=== PATIENT | female | born 1980 | race Caucasian/White ===

== ENCOUNTER → 2016-03-25 | Outpatient (CLI) | payer OTHER | END | disposition home or self-care (01) | LOC: C.LABSPEC 11:28 | PROVIDERS: ATTEND Obstetrics & Gynecology | DX: O13.3 Gestational [pregnancy-induced] hypertension without significant proteinuria, third trimester (principal); O09.513 Supervision of elderly primigravida, third trimester ==

== ENCOUNTER → 2016-03-26 | Outpatient (CLI) | payer OTHER ==
[2016-03-26 18:36] LABS: PATIENT HEIGHT 162.6 cm
[2016-03-26 18:49] LABS: HEMATOCRIT 39.8 % (37-47); MEAN CORPUSCULAR HEMOGLOBIN 32.1 pg (25-34); MEAN CORPUSCULAR HGB CONC 35.7 g/dl (32-36); MEAN PLATELET VOLUME 10.6 fL (7.4-10.4); PLATELET COUNT 311 K/uL (130-400); RED BLOOD COUNT 4.42 M/uL (4.2-5.4); WHITE BLOOD COUNT 13.53 K/uL (4.8-10.8)
[2016-03-26 19:09] LABS: ALT/SGPT 52 U/L (12-78); AST/SGOT 34 U/L (15-37); CREATININE 0.65 mg/dl (0.60-1.20); URIC ACID 3.8 mg/dl (2.6-7.2)
[2016-03-26 19:12] LABS: ALKALINE PHOSPHATASE 134 U/L (45-117)
[2016-03-26 21:36] LABS: URINE TOTAL PROTEIN 10.3 mg/dl (0-11.9)
[2016-03-26 22:44] LABS: CREATININE 0.65 mg/dl (0.6-1.2)
== END | disposition home or self-care (01) ==
LOC: C.LAB 18:26
PROVIDERS: ATTEND Obstetrics & Gynecology
DX: O09.513 Supervision of elderly primigravida, third trimester (principal); O13.9 Gestational [pregnancy-induced] hypertension without significant proteinuria, unspecified trimester

== ENCOUNTER → 2016-03-31 | Outpatient (CLI) | payer OTHER ==
[2016-03-31 20:17] LABS: HEMATOCRIT 38.3 % (37-47); MEAN CELL VOLUME 90.3 fL (80-100); MEAN CORPUSCULAR HEMOGLOBIN 31.8 pg (25-34); MEAN CORPUSCULAR HGB CONC 35.2 g/dl (32-36); MEAN PLATELET VOLUME 10.6 fL (7.4-10.4); PLATELET COUNT 340 K/uL (130-400); RED BLOOD COUNT 4.24 M/uL (4.2-5.4); WHITE BLOOD COUNT 16.47 K/uL (4.8-10.8)
[2016-03-31 20:38] LABS: ALT/SGPT 38 U/L (12-78); CREATININE 0.66 mg/dl (0.60-1.20)
[2016-03-31 20:41] LABS: ALKALINE PHOSPHATASE 131 U/L (45-117); AST/SGOT 27 U/L (15-37)
[2016-03-31 23:01] LABS: PATIENT HEIGHT 162.6 cm
[2016-03-31 23:23] LABS: CREATININE 0.66 mg/dl (0.6-1.2)
[2016-03-31 23:26] LABS: URINE TOTAL PROTEIN 14.8 mg/dl (0-11.9)
== END | disposition home or self-care (01) ==
LOC: C.LAB 19:30
PROVIDERS: ATTEND Obstetrics & Gynecology
DX: O13.9 Gestational [pregnancy-induced] hypertension without significant proteinuria, unspecified trimester (principal)

== ENCOUNTER 2016-04-05 17:54 | Outpatient (CLI) | payer OTHER | END 2016-04-05 19:27 | disposition home or self-care (01) | LOC: C.LD 17:54 → C.OPB 17:54 | PROVIDERS: ATTEND Obstetrics & Gynecology | DX: O13.3 Gestational [pregnancy-induced] hypertension without significant proteinuria, third trimester (principal); Z3A.37 37 weeks gestation of pregnancy ==

== ENCOUNTER 2016-04-06 08:01 | Inpatient (IN) | payer OTHER ==
[~2016-04-06] VITALS: Ht 162.6 cm; Wt 93.2 kg
[2016-04-06] MEDS ORDERED: LACTATED RINGER'S 1000ML 1,000 ML IV PRN (08:35)
[2016-04-06] MEDS ORDERED: LACTATED RINGER'S 1000ML 500 ML IV PRN (08:35)
[2016-04-06] MEDS ORDERED: OXYTOCIN 30 UNITS/500ML NSS IV PRN ×2 (08:45→19:00)
[2016-04-06] MEDS ORDERED: PATIENT'S ALLERGY INFO NEEDS ENTERED SCH (09:00)
[2016-04-06] MEDS ORDERED: PENICILLIN G POTASSIUM IV 6 MU in DEXTROSE 5% 250ML 250 ML IV ONE (09:00)
[2016-04-06 09:02] LABS: HEMATOCRIT 38.1 % (37-47); MEAN CELL VOLUME 90.7 fL (80-100); MEAN CORPUSCULAR HEMOGLOBIN 31.4 pg (25-34); MEAN CORPUSCULAR HGB CONC 34.6 g/dl (32-36); MEAN PLATELET VOLUME 10.9 fL (7.4-10.4); PLATELET COUNT 274 K/uL (130-400); WHITE BLOOD COUNT 16.89 K/uL (4.8-10.8)
[2016-04-06] MEDS: LACTATED RINGER'S 1000ML 1,000 ML IV SCH ×2 (09:16→15:15)
[2016-04-06 09:26] LABS: ALT/SGPT 36 U/L (12-78); BLOOD UREA NITROGEN 10 mg/dl (7-18); BUN/CREATININE RATIO 17.2 (10-20); CALCIUM 8.4 mg/dl (8.5-10.1); CARBON DIOXIDE 21 mmol/L (21-32); CHLORIDE 107 mmol/L (98-107); GLUCOSE 81 mg/dl (70-99); POTASSIUM 3.7 mmol/L (3.5-5.1); SODIUM 140 mmol/L (136-145)
[2016-04-06 09:29] LABS: ALB/GLOB RATIO 0.7 (0.9-2); ALKALINE PHOSPHATASE 127 U/L (45-117); AST/SGOT 29 U/L (15-37)
[2016-04-06 10:17] VITALS: Ht 162.6 cm; Wt 93.2 kg
[2016-04-06] MEDS: PENICILLIN G POTASSIUM IV 3 MU in DEXTROSE 5% 100ML 100 ML IV PRN ×2 (13:26→17:24)
[2016-04-06] MEDS ORDERED: FENTANYL CITRATE INJ 50 MCG/1 ML 2 ML VIAL ONE (14:33)
[2016-04-06] MEDS ORDERED: EpHEDrine SULFATE INJ 50 MG/ML AMP ONE (14:33)
[2016-04-06] MEDS ORDERED: FENTANYL 2MCG/ML ROPIV 1.25MG/ML 100ML BAG EPI ONE (14:33)
[2016-04-06] MEDS ORDERED: BUPIVACAINE 0.25% 30 ML VIAL ONE (14:33)
[2016-04-06] MEDS ORDERED: ACETAMINOPHEN/CODEINE 300/30MG TAB PO PRN ×2 (19:00)
[2016-04-06] MEDS ORDERED: DIPHTHERIA/TETANUS/PERTUSSIS 0.5 ML SYR/VIAL IM. ONE (19:00)
[2016-04-06] MEDS ORDERED: ACETAMINOPHEN 325 MG TAB PO PRN (19:00)
[2016-04-06] MEDS ORDERED: HYDROCORTISONE ACETATE 25 MG SUPP PR PRN (19:00)
[2016-04-06] MEDS ORDERED: LANOLIN OINT EXT PRN ×2 (19:00)
[2016-04-06] MEDS ORDERED: BENZOCAINE 20% AER SPR 82.5 GM CAN EXT PRN (19:00)
[2016-04-06] MEDS ORDERED: SUPERCREAM 0.870 % 15GM JAR EXT PRN (19:00)
--- NOTE | 2016-04-06 19:27 | Anesthesia Procedure Note ---
Anesthesia Epidural Removal Nt Date & Time Apr 06, 2016 at 19:27 Notes Mental Status: alert / awake / arousable, participated in evaluation Nausea / Vomiting: adequately controlled Pain: adequately controlled Airway Patency, RR, SpO2: stable & adequate BP & HR: stable & adequate Hydration State: stable & adequate Neuraxial Anesthesia: was administered Anesthetic Complications: no major complications apparent, pt satisfied with anesthetic care Epidural: removed without complications, with tip intact
[2016-04-06 21:45] VITALS: BP 134/85; PULSE 94; TEMP 36.7; O2SAT 97
--- NOTE | 2016-04-06 22:33 | DELIVERY SUMMARY ---
DATE OF OPERATION: 04/06/2016 FINDINGS: A viable female infant with Apgars of 8 and 9. Baby delivered over a midline second degree laceration with midline second degree periurethral laceration. Cord gases, cord blood samples obtained. Placenta delivered spontaneously. Laceration was repaired with 4-0 Vicryl. Estimated blood loss was 300 mL. LABOR NOTE: The patient is a 36-year-old 3, para 0 admitted at 37+ weeks' gestational age for induction for gestational hypertension. The patient's hypertension was diagnosed in the third trimester. Per protocol, she was followed for preeclampsia. The patient had less than 300 mg of total protein. Because of the term gestational age, she was admitted for induction. The patient had presented to labor and delivery the previous evening for Wiggins bulb placement, that dislodged at approximately 2300 hours on the 05 of April. Upon admission, the patient's cervix was 3 cm dilated, 90% effaced and minus 2 station, blood pressure was 168/86. Preeclamptic labs were drawn, which were within normal limits. Because of the advanced cervical dilatation, she was started on Pitocin, per induction protocol. The patient progressed to a regular labor pattern. She had spontaneous rupture of membranes with clear fluid. Contraction increased markedly in intensity. At that time, cervix was still 3 cm. Anesthesia was consulted and an epidural was placed. Three hours after placement of the epidural, repeat examination showed the cervix to be fully dilated in a +2 presentation. She began her second stage. She pushed a little over half an hour delivering the viable female infant with description as above. Cord was clamped and cut. Cord gases, cord blood samples obtained. Placenta was delivered spontaneously and sent for pathological evaluation. Inspection of the perineum showed a midline second degree laceration and a midline second degree periurethral laceration. Both of those were repaired with 4-0 Vicryl in routine fashion. Estimated blood loss was 300 mL. Sponge and needle count was correct. I attest to the content of the Intraoperative Record and any orders documented therein. Any exceptio ns are noted below.
[2016-04-06 23:50] VITALS: BP 139/92; PULSE 82; TEMP 36.5; O2SAT 96
[2016-04-06] MEDS: IBUPROFEN 600 MG TAB PO PRN (23:59)
[2016-04-07 04:30] VITALS: BP 127/83; PULSE 90; TEMP 36.5; O2SAT 96
[2016-04-07] MEDS: IBUPROFEN 600 MG TAB PO PRN ×5 (04:40→23:23)
--- NOTE | 2016-04-07 06:51 | Medical Student: [facility] ---
Med Student RIM BUSTER Progress Nt Date of Service Apr 07, 2016. Subjective conversation w/ patient, conversation w/ family, physical exam, chart review Ambulation: ambulating normally Voiding: no voiding problems Passing Gas: Yes Diet Tolerance: Regular Diet Lochia: Moderate Feeding Type: Bottle Feeding Pain: denies pain Notes: Pt is doing well. No pain. Tolerate diet well. Able to ambulate and pass some gas. No problem with urination. Bottle feeding her baby. Plan to stay for another day due to GBS+ Review of Systems Constitutional: No chills, No fever Respiratory: No cough, No shortness of breath, No sputum Cardiac: No chest pain, No edema Abdomen: No nausea, No pain Female : + vaginal discharge (vaginal bleeding) Objective Vital Signs Date Time Temp Pulse Resp B/P Pulse Ox O2 Delivery O2 Flow Rate FiO2 04/07/16 04:30 36.5 90 16 127/83 96 Room Air 04/06/16 23:50 96 Room Air 04/06/16 23:50 36.5 82 20 139/92 96 Room Air 04/06/16 21:45 36.7 94 18 134/85 97 Room Air Physical Exam General Appearance: WELL-APPEARING, WD/WN Respiratory/Chest: lungs clear, normal breath sounds, no respiratory distress Cardiovascular: regular rate, rhythm, no gallop Abdomen: non tender Fundus: Firm, Relation to Umbilicus (2 fingers-breath below the umbilicus) Extremities: normal range of motion, no calf tenderness Laboratory Results Last 24 Hours Test 04/06/16 08:46 04/07/16 04:44 White Blood Count 16.89 K/uL Red Blood Count 4.20 M/uL Hemoglobin 13.2 g/dL Hematocrit 38.1 % Mean Corpuscular Volume 90.7 fL Mean Corpuscular Hemoglobin 31.4 pg Mean Corpuscular Hemoglobin Concent 34.6 g/dl RDW Standard Deviation 43.2 fL RDW Coefficient of Variation 13.1 % Platelet Count 274 K/uL Mean Platelet Volume 10.9 fL Sodium Level 140 mmol/L Potassium Level 3.7 mmol/L Chloride Level 107 mmol/L Carbon Dioxide Level 21 mmol/L Anion Gap 12.0 mmol/L Blood Urea Nitrogen 10 mg/dl Creatinine 0.60 mg/dl Estimated GFR () 135.0 Estimated GFR (Non- 116.4 BUN/Creatinine Ratio 17.2 Random Glucose 81 mg/dl Calcium Level 8.4 mg/dl Total Bilirubin 0.3 mg/dl Aspartate Amino Transf (AST/SGOT) 29 U/L Alanine Aminotransferase (ALT/SGPT) 36 U/L Alkaline Phosphatase 127 U/L Total Protein 6.3 gm/dl Albumin 2.6 gm/dl Globulin 3.7 gm/dl Albumin/Globulin Ratio 0.7 Medications Current Inpatient Medications Medications (Trade) Dose Ordered Sig/Hailey Route Start Time Stop Time Status Last Admin Dose Admin Penicillin G Potassium 3 mu/ Dextrose 106 ml @ 100 mls/hr Q4H PRN IV 04/06/16 08:45 04/08/16 08:44 04/06/16 17:24 100 MLS/HR Lactated Ringer's 1,000 ml @ 125 mls/hr Q8H IV 04/06/16 08:35 04/08/16 08:34 04/06/16 15:15 125 MLS/HR Lactated Ringer's (Lr 1000ml) 1,000 ml @ 999 mls/hr Q1H1M PRN IV 04/06/16 08:35 05/06/16 08:34 Oxytocin 30 units 30 units UD PRN IV 04/06/16 08:45 05/06/16 08:44 04/06/16 09:51 30 UNITS Lactated Ringer's (Lr 1000ml) 500 ml @ 999 mls/hr Q31M PRN IV 04/06/16 08:35 05/06/16 08:34 Oxytocin (Pitocin IV) 30 units UD PRN IV 04/06/16 19:00 05/06/16 18:59 Benzocaine (Dermoplast Aero Spr) 1 appln PRN PRN EXT 04/06/16 19:00 05/06/16 18:59 04/06/16 23:59 1 APPLN Cocaine HCl (Supercream 0.870% Cr) BID PRN EXT 04/06/16 19:00 04/20/16 18:59 Hydrocortisone Acetate (Anusol Hc Supp) 25 mg BID PRN RI 04/06/16 19:00 05/06/16 18:59 Lanolin (Lanolin Oint) PRN PRN EXT 04/06/16 19:00 05/06/16 18:59 Prenat Multivit/ Project Finance Analyst/Iron/Folic Ac ( Vitamin Tab) 1 tab DAILY PO 04/07/16 08:00 05/07/16 07:59 Ibuprofen (Motrin Tab) 600 mg Q4H PRN PO 04/06/16 19:00 05/06/16 18:59 04/07/16 04:40 600 MG Acetaminophen (Tylenol Tab) 650 mg Q6H PRN PO 04/06/16 19:00 05/06/16 18:59 Acetaminophen/ Codeine Phosphate (Tylenol w/ Codeine #3 Tab) 1 tab Q4H PRN PO 04/06/16 19:00 05/06/16 18:59 Acetaminophen/ Codeine Phosphate (Tylenol w/ Codeine #3 Tab) 2 tab Q4H PRN PO 04/06/16 19:00 05/06/16 18:59 Bisacodyl (Dulcolax Tab) 5 mg TODAY@2000 ONCE PO 04/07/16 20:00 04/07/16 20:01 Docusate Sodium (coLACE CAP) 100 mg BID PO 04/06/16 20:00 05/06/16 19:59 Ferrous Sulfate (Feosol Tab) 325 mg DAILY PO 04/07/16 08:00 05/07/16 07:59 Assessment and Plan Post- Day Number: 1 Continue Routine Care: BP 127/83 Ambulation well Tolerate diet well GBS+ Plan to discharge tomorrow
--- NOTE | 2016-04-07 07:11 | Progress Note ---
Subjective Apr 07, 2016. Subjective conversation w/ patient, physical exam Ambulation: ambulating normally Voiding: no voiding problems Passing Gas: Yes Diet Tolerance: Regular Diet Lochia: Moderate Feeding Type: Bottle Feeding Pain: Cramping pain Review of Systems Constitutional: No chills, No fever Respiratory: No cough, No shortness of breath Cardiac: No chest pain Breast: No breast pain Abdomen: No nausea, No pain, No vomiting Female : No dysuria Objective Vital Signs Date Time Temp Pulse Resp B/P Pulse Ox O2 Delivery O2 Flow Rate FiO2 04/07/16 04:30 36.5 90 16 127/83 96 Room Air 04/06/16 23:50 96 Room Air 04/06/16 23:50 36.5 82 20 139/92 96 Room Air 04/06/16 21:45 36.7 94 18 134/85 97 Room Air Physical Exam General Appearance: WELL-APPEARING, WD/WN, NO APPARENT DISTRESS Respiratory/Chest: lungs clear, normal breath sounds Cardiovascular: regular rate, rhythm, no gallop, no murmur Abdomen: non tender, soft Fundus: Firm, Relation to Umbilicus (1cm below) Extremities: no calf tenderness Laboratory Results Last 24 Hours Test 04/06/16 08:46 04/07/16 04:44 White Blood Count 16.89 K/uL Red Blood Count 4.20 M/uL Hemoglobin 13.2 g/dL Hematocrit 38.1 % Mean Corpuscular Volume 90.7 fL Mean Corpuscular Hemoglobin 31.4 pg Mean Corpuscular Hemoglobin Concent 34.6 g/dl RDW Standard Deviation 43.2 fL RDW Coefficient of Variation 13.1 % Platelet Count 274 K/uL Mean Platelet Volume 10.9 fL Sodium Level 140 mmol/L Potassium Level 3.7 mmol/L Chloride Level 107 mmol/L Carbon Dioxide Level 21 mmol/L Anion Gap 12.0 mmol/L Blood Urea Nitrogen 10 mg/dl Creatinine 0.60 mg/dl Estimated GFR () 135.0 Estimated GFR (Non- 116.4 BUN/Creatinine Ratio 17.2 Random Glucose 81 mg/dl Calcium Level 8.4 mg/dl Total Bilirubin 0.3 mg/dl Aspartate Amino Transf (AST/SGOT) 29 U/L Alanine Aminotransferase (ALT/SGPT) 36 U/L Alkaline Phosphatase 127 U/L Total Protein 6.3 gm/dl Albumin 2.6 gm/dl Globulin 3.7 gm/dl Albumin/Globulin Ratio 0.7 Medications Current Inpatient Medications Medications (Trade) Dose Ordered Sig/Hailey Route Start Time Stop Time Status Last Admin Dose Admin Penicillin G Potassium 3 mu/ Dextrose 106 ml @ 100 mls/hr Q4H PRN IV 04/06/16 08:45 04/08/16 08:44 04/06/16 17:24 100 MLS/HR Lactated Ringer's 1,000 ml @ 125 mls/hr Q8H IV 04/06/16 08:35 04/08/16 08:34 04/06/16 15:15 125 MLS/HR Lactated Ringer's (Lr 1000ml) 1,000 ml @ 999 mls/hr Q1H1M PRN IV 04/06/16 08:35 05/06/16 08:34 Oxytocin 30 units 30 units UD PRN IV 04/06/16 08:45 05/06/16 08:44 04/06/16 09:51 30 UNITS Lactated Ringer's (Lr 1000ml) 500 ml @ 999 mls/hr Q31M PRN IV 04/06/16 08:35 05/06/16 08:34 Oxytocin (Pitocin IV) 30 units UD PRN IV 04/06/16 19:00 05/06/16 18:59 Benzocaine (Dermoplast Aero Spr) 1 appln PRN PRN EXT 04/06/16 19:00 05/06/16 18:59 04/06/16 23:59 1 APPLN Cocaine HCl (Supercream 0.870% Cr) BID PRN EXT 04/06/16 19:00 04/20/16 18:59 Hydrocortisone Acetate (Anusol Hc Supp) 25 mg BID PRN [place] 04/06/16 19:00 05/06/16 18:59 Lanolin (Lanolin Oint) PRN PRN EXT 04/06/16 19:00 05/06/16 18:59 Prenat Multivit/ Supervisor Inspection Department/Iron/Folic Ac ( Vitamin Tab) 1 tab DAILY PO 04/07/16 08:00 05/07/16 07:59 Ibuprofen (Motrin Tab) 600 mg Q4H PRN PO 04/06/16 19:00 05/06/16 18:59 04/07/16 04:40 600 MG Acetaminophen (Tylenol Tab) 650 mg Q6H PRN PO 04/06/16 19:00 05/06/16 18:59 Acetaminophen/ Codeine Phosphate (Tylenol w/ Codeine #3 Tab) 1 tab Q4H PRN PO 04/06/16 19:00 05/06/16 18:59 Acetaminophen/ Codeine Phosphate (Tylenol w/ Codeine #3 Tab) 2 tab Q4H PRN PO 04/06/16 19:00 05/06/16 18:59 Bisacodyl (Dulcolax Tab) 5 mg TODAY@2000 ONCE PO 04/07/16 20:00 04/07/16 20:01 Docusate Sodium (coLACE CAP) 100 mg BID PO 04/06/16 20:00 05/06/16 19:59 Ferrous Sulfate (Feosol Tab) 325 mg DAILY PO 04/07/16 08:00 05/07/16 07:59 Assessment and Plan Post- Day#: 1 Continue Routine Care: - Vital Signs reviewed and WNL (temp max 36.5) - Blood Type: O-, GBS+ , Rubella Immune - Patient doing well clinically - Encourage Ambulation today - No pain reported this morning - Tolerating PO Diet Well
[2016-04-07 07:23] LABS: HEMATOCRIT 36.3 % (37-47)
[2016-04-07 08:00] VITALS: BP 140/80; PULSE 76; TEMP 36.7; O2SAT 98
[2016-04-07] MEDS: DOCUSATE SODIUM 100 MG CAP PO SCH ×2 (08:59→20:23)
[2016-04-07] MEDS: PRENATAL VITAMIN TAB PO SCH (08:59)
[2016-04-07] MEDS: FERROUS SULFATE 325 MG TAB PO SCH (08:59)
[2016-04-07 12:30] VITALS: BP 138/82; PULSE 64; TEMP 36.8; O2SAT 98
[2016-04-07 16:00] VITALS: BP 128/82; PULSE 83; TEMP 36.8
[2016-04-07] MEDS ORDERED: BISACODYL 5 MG TABEC PO ONE (20:00)
[2016-04-07 23:25] VITALS: BP 127/83; PULSE 67; TEMP 36.8
[2016-04-08] MEDS: IBUPROFEN 600 MG TAB PO PRN ×2 (06:07→10:09)
--- NOTE | 2016-04-08 07:22 | Progress Note ---
Subjective Apr 08, 2016. Subjective conversation w/ patient, physical exam Ambulation: ambulating normally Voiding: no voiding problems Passing Gas: Yes Diet Tolerance: Regular Diet Lochia: Small Feeding Type: Bottle Feeding Pain: No pain reported this morning Review of Systems Constitutional: No chills, No fever Respiratory: No cough, No shortness of breath Cardiac: No chest pain Breast: No breast pain Abdomen: No nausea, No pain, No vomiting Female : No dysuria Objective Vital Signs Date Time Temp Pulse Resp B/P Pulse Ox O2 Delivery O2 Flow Rate FiO2 04/07/16 23:25 36.8 67 19 127/83 Room Air 04/07/16 23:25 Room Air 04/07/16 16:00 36.8 83 18 128/82 Room Air 04/07/16 16:00 Room Air 04/07/16 12:30 36.8 64 16 138/82 98 Room Air 04/07/16 12:30 98 Room Air 04/07/16 08:00 36.7 76 16 140/80 98 Room Air 04/07/16 08:00 98 Room Air Physical Exam General Appearance: WELL-APPEARING, WD/WN, NO APPARENT DISTRESS Respiratory/Chest: lungs clear, normal breath sounds Cardiovascular: regular rate, rhythm, no gallop, no murmur Abdomen: non tender, soft Fundus: Firm, Relation to Umbilicus (1cm below umbilicus) Extremities: no calf tenderness Medications Current Inpatient Medications Medications (Trade) Dose Ordered Sig/Hailey Route Start Time Stop Time Status Last Admin Dose Admin Penicillin G Potassium 3 mu/ Dextrose 106 ml @ 100 mls/hr Q4H PRN IV 04/06/16 08:45 04/08/16 08:44 04/06/16 17:24 100 MLS/HR Lactated Ringer's 1,000 ml @ 125 mls/hr Q8H IV 04/06/16 08:35 04/08/16 08:34 04/06/16 15:15 125 MLS/HR Lactated Ringer's (Lr 1000ml) 1,000 ml @ 999 mls/hr Q1H1M PRN IV 04/06/16 08:35 05/06/16 08:34 Oxytocin 30 units 30 units UD PRN IV 04/06/16 08:45 05/06/16 08:44 04/06/16 09:51 30 UNITS Lactated Ringer's (Lr 1000ml) 500 ml @ 999 mls/hr Q31M PRN IV 04/06/16 08:35 05/06/16 08:34 Oxytocin (Pitocin IV) 30 units UD PRN IV 04/06/16 19:00 05/06/16 18:59 Benzocaine (Dermoplast Aero Spr) 1 appln PRN PRN EXT 04/06/16 19:00 05/06/16 18:59 04/06/16 23:59 1 APPLN Cocaine HCl (Supercream 0.870% Cr) BID PRN EXT 04/06/16 19:00 04/20/16 18:59 Hydrocortisone Acetate (Anusol Hc Supp) 25 mg BID PRN [place] 04/06/16 19:00 05/06/16 18:59 Lanolin (Lanolin Oint) PRN PRN EXT 04/06/16 19:00 05/06/16 18:59 Prenat Multivit/ Director Of Research And Development/Iron/Folic Ac ( Vitamin Tab) 1 tab DAILY PO 04/07/16 08:00 05/07/16 07:59 04/07/16 08:59 1 TAB Ibuprofen (Motrin Tab) 600 mg Q4H PRN PO 04/06/16 19:00 05/06/16 18:59 04/08/16 06:07 600 MG Acetaminophen (Tylenol Tab) 650 mg Q6H PRN PO 04/06/16 19:00 05/06/16 18:59 Acetaminophen/ Codeine Phosphate (Tylenol w/ Codeine #3 Tab) 1 tab Q4H PRN PO 04/06/16 19:00 05/06/16 18:59 Acetaminophen/ Codeine Phosphate (Tylenol w/ Codeine #3 Tab) 2 tab Q4H PRN PO 04/06/16 19:00 05/06/16 18:59 Docusate Sodium (coLACE CAP) 100 mg BID PO 04/06/16 20:00 05/06/16 19:59 04/07/16 20:23 100 MG Ferrous Sulfate (Feosol Tab) 325 mg DAILY PO 04/07/16 08:00 05/07/16 07:59 04/07/16 08:59 325 MG Assessment and Plan Post- Day#: 2 Continue Routine Care: - Vital Signs reviewed and WNL (temp max 36.8) - Blood Type: O-, GBS+ , Rubella Immune - Patient doing well clinically - Encourage Ambulation today - No pain reported this morning - Tolerating PO Diet Well - Discharge home today Resident Physician Supervision Note: I interviewed and examined the patient. Discussed with Dr. Myers and agree with findings and plan as documented in the note. Any exceptions or clarifications are listed here: [None] Documented By: Oanh Godoy
--- NOTE | 2016-04-08 07:23 | Discharge Instructions ---
Discharge Instructions Admission Reason for Admission: Induction Discharge Discharge Diagnosis / Problem: Vaginal Delivery Discharge Goals Goal(s): Routine recovery after delivery Medications Continue Dispensed Medications: supercream, dermaplast, tucks, lansinoh Activity Recommendations Activity Limitations: per Instructions/Follow-up section . Instructions / Follow-Up Instructions / Follow-Up ACTIVITY RECOMMENDATIONS: * Gradual return to full activity over the next 2-3 weeks. * No lifting - nothing heavier than baby over the next 2-3 weeks. * Do not engage in vigorous exercise, sexual activity or sports until cleared by your physician. * Do not drive or operate any motorized equipment until cleared by your physician. * You may shower/bathe daily. MEDICATIONS: For discomfort or pain, you may use Acetaminophen (Tylenol), Ibuprofen (Advil), or Naproxen (Aleve) following the package directions. For constipation you may use Colace following the package directions. BREAST CARE: If you are not breast feeding: * Wear a supportive bra 24 hours a day for one to two weeks. * Avoid stimulating your breasts and nipples as much as possible during the first few weeks after delivery. * When taking a shower, have the warm water hit your back, not breasts. * When your breasts feel full, apply ice packs. Usually three to four times a day helps ease the discomfort. * Take a mild pain medication (Tylenol / Motrin) when you are uncomfortable. If breast feeding: * Use breast milk to lubricate nipples. Lansinoh cream may be used for sore nipples. You do not need to remove cream prior to breast feeding. If using a different brand of cream, check the label for directions regarding removal of cream prior to nursing. * Wear a supportive bra. * If having problems with breasts or breast feeding, call a artist consultant or your health care provider. EPISIOTOMY CARE: After delivery, if you have an episiotomy (stitches), the following steps will ease discomfort and aid healing. * For the first 24 hours after delivery, place ice packs next to your episiotomy to help reduce swelling. * After the first 24 hour-period, sitz baths, either portable or in the tub, are suggested. A shower with a shower arm sprayed over the episiotomy may be comforting. * Faith care should be done after each voiding and bowel movement. Squirt warm water from a plastic bottle over the perineum (region of the body between the anus and urinary opening) and pat dry. * Use Dermoplast to ease discomfort. Shake container. [place] directly over the episiotomy. Place a Tucks on a clean sanitary pad next to your episiotomy. SPECIAL CARE INSTRUCTIONS: When you are discharged from the hospital, it is important for you to follow the instructions listed below: * During the first week at home, you should be able to care for yourself and your baby. In addition, the usual light household activities are encouraged. * Limit your activities to the way you feel. Do not try to clean the house or move furniture. Be sensible. * If you actively engage in sports and have done so up until the time of your delivery, you may resume these activities as soon as you feel able. This may take up to one month or even longer. Use good judgment. * Continue to take your vitamins for at least six weeks after the of your baby. * Your diet need not be limited unless you were on a special diet before your delivery. Breast-feeding mothers need around 2500 calories per day and at least 64-80 ounces of fluid per day (8 to 10 glasses). * You should eat foods from the four major food groups. Crash diets or fad diets are to be avoided. Eating lean meats, fresh fruits and vegetables, low-fat dairy products, high fiber foods and a regular exercise program, will help you get back to your pre- weight without putting your health at risk. * Constipation is sometimes a problem after delivery. Take a mild laxative as needed. If breast feeding, Milk of Magnesia is acceptable to use. You may use a suppository or Fleets enema if no episiotomy. * A daily shower or tub bath is suggested. Be sure to thoroughly and gently dry the perineum. * A bloody vaginal discharge will usually continue until around four weeks post . A small amount of bleeding may continue for as long as six weeks. Vaginal discharge changes from the bright red bleeding after delivery to pink then brownish and finally yellowish-pink before becoming white and disappearing. * Bleeding may increase with activity. Your first period may come in 4-8 weeks. If you are breast feeding, your period may be delayed even longer. * [place] (sex) can begin whenever both you and your partner feel comfortable and do not have any form of genital infection. It is recommended that you wait at least six weeks for internal and external healing to occur. If you have questions, please talk to your health care practitioner. A condom should be used to prevent infection and . * Foreplay, gentle intercourse and lubrication is very important the first several times to prevent pain. A water-based lubricant such as K-Y jelly or Astroglide may be used. * If you have RH negative blood and your baby is RH positive, you will receive RHOGAM by injection prior to discharge. The nurse will give you a card to keep with you that has the date and place that you received RHOGAM after delivery. * During your care, you had a Rubella screen done to check for the presence of rubella antibodies in your blood. If your test was negative, you will receive a Rubella vaccine prior to discharge. This vaccine may cause a fever, soreness at the injection site and flu-like symptoms. If these symptoms persist, notify your health care practitioner. is not advised for one month after a Rubella vaccine. * Verbalizes understanding of car seat law as reviewed with patient nursing. * Car Seat hand-out given and reviewed with patient by nursing. * Shaken baby information reviewed with patient by nursing. Call you doctor if: * Heavy bleeding (saturating several pads an hour) or passing clots the size of your fist. * A fever >101 degrees F (38.3 degrees C) on two occasions four hours apart and /or chills. * Unusual pain in the pelvic or vaginal areas. * "Baby Blues" lasting longer than two weeks. If you have any questions or concerns, call your health care practitioner at . FOLLOW UP VISIT: * Please call the office at to schedule a 6 week examination. It is important you keep this appointment. It is important for you to make arrangements for either yearly or twice yearly check-ups thereafter. Current Hospital Diet Patient's current hospital diet: Regular OB Diet Discharge Diet Recommended Diet: Regular Diet Pending Studies Studies pending at discharge: no Medical Emergencies . Who to Call and When: Medical Emergencies: If at any time you feel your situation is an emergency, please call 911 immediately. . Non-Emergent Contact Non-Emergency issues call your: Substation Operator Apprentice . . "Provider Documentation" section prepared by Hector Myers. VTE Core Measure Inpt VTE Proph given/why not?: Treatment not indicated
[2016-04-08 07:30] VITALS: BP 121/71; PULSE 66; TEMP 36.7; O2SAT 96
[2016-04-08] MEDS: PRENATAL VITAMIN TAB PO SCH (09:17)
[2016-04-08] MEDS: FERROUS SULFATE 325 MG TAB PO SCH (09:17)
[2016-04-08] MEDS: DOCUSATE SODIUM 100 MG CAP PO SCH (09:18)
[2016-04-08 11:28] VITALS: BP_DIAS 71; PULSE 66; TEMP 36.7
== END 2016-04-08 11:28 | disposition home or self-care (01) | DRG 775 ==
LOC: C.LD 08:01 → C.OBG 21:45
PROVIDERS: ADMIT Obstetrics & Gynecology; ATTEND Obstetrics & Gynecology
PROC: 0UQMXZZ Repair Vulva, External Approach (ICD-10-PCS; principal; 2016-04-06)
PROC: 10907ZC Drainage of Amniotic Fluid, Therapeutic from Products of Conception, Via Natural or Artificial Opening (ICD-10-PCS; principal; 2016-04-06)
PROC: 0KQM0ZZ Repair Perineum Muscle, Open Approach (ICD-10-PCS; principal; 2016-04-06)
PROC: 3E033VJ Introduction of Other Hormone into Peripheral Vein, Percutaneous Approach (ICD-10-PCS; principal; 2016-04-06)
PROC: 10E0XZZ Delivery of Products of Conception, External Approach (ICD-10-PCS; principal; 2016-04-06)
PROC: 0U7C7ZZ Dilation of Cervix, Via Natural or Artificial Opening (ICD-10-PCS; principal; 2016-04-06)
DX: O13.4 Gestational [pregnancy-induced] hypertension without significant proteinuria, complicating childbirth (principal); O36.0130 Maternal care for anti-D [Rh] antibodies, third trimester, not applicable or unspecified; Z37.0 Single live birth; O99.824 Streptococcus B carrier state complicating childbirth; O76 Abnormality in fetal heart rate and rhythm complicating labor and delivery; O71.82 Other specified trauma to perineum and vulva; O70.1 Second degree perineal laceration during delivery; Z3A.37 37 weeks gestation of pregnancy; Z67.41 Type O blood, Rh negative

== ENCOUNTER 2025-03-17 20:05 | Inpatient (IN) ==
[2025-03-17 21:22] LABS: Hematocrit (blood only) 39.7 % (37.0-47.0); Hemoglobin 13.6 g/dL (12.0-16.0); Immature Granulocytes # (auto) 0.07 K/uL (0.01-0.20); Immature Granulocytes % (auto) 0.7 %; Mean Corpuscular Hemoglobin 31.3 pg (25.0-34.0); Mean Corpuscular Volume 91.3 fL (80.0-100.0); Platelet Count 645 K/uL (130-400); RDW Standard Deviation 40.2 fL (36.4-46.3); Red Blood Count 4.35 M/uL (4.20-5.40); White Blood Count 10.55 K/ul (4.8-10.8)
[2025-03-17 21:24] LABS: Appearance Urine Clear (Clear); Bacteria Urine Automated 1+ (None Seen); Cast Urine Automated 0-2 /lpf (0-2); Epithelial Cell Urine Auto 0-2 /hpf (0-2); Glucose Urine UA Negative (Negative)
[2025-03-17] MEDS: diphenhydrAMINE 50 MG/ML VIAL IV STA (21:54)
[2025-03-17] MEDS: cefTRIAXone SODIUM 2,000 MG/50 ML BAG IV STA (21:54)
[2025-03-17] MEDS: METOCLOPRAMIDE HCL INJ 5 MG/ML 2 ML VIAL IV STA (21:54)
[2025-03-17] MEDS: SODIUM CHLORIDE 0.9% 1,000 ML IV ONE (21:55)
[2025-03-17 22:07] LABS: Influenza A virus by PCR Negative (Neg); Influenza B virus by PCR Negative (Neg); SARS CoV2 RNA(COVID-19) Ceph NEGATIVE (Negative)
[2025-03-17 23:43] LABS: Alanine Aminotransferase 27.0 U/L (7-52); Albumin Globulin Ratio 1.1 (0.9-2); Albumin Level 3.9 gm/dl (3.4-5.0); Alkaline Phosphatase 81.0 U/L (34-104); Anion Gap 7.0 (3-11); Bilirubin,Total 0.3 mg/dl (0.2-1.0); Blood Urea Nitrogen 17.0 mg/dl (6-23); Calcium 9.3 mg/dl (8.6-10.3); Carbon Dioxide 29.0 mmol/L (21-32); Chloride 100.0 mmol/L (98-107); Creatinine Clr Calc Pharmacy 92.5 ml/min; Globulin 3.5 gm/dl (2.5-4.0); Glucose 93.0 mg/dl (70-99(Fasting)); Magnesium 2.1 mg/dl (1.7-2.4); Potassium 3.8 mmol/L (3.5-5.1); Sodium 136.0 mmol/L (136-145); Total Protein 7.4 gm/dl (6.0-8.3)
[2025-03-18] MEDS: OPTIRAY 320 125ml IV ONE (00:03)
--- NOTE | 2025-03-18 00:55 | CT Scan Report ---
EXAM: CT angio head wo/w CLINICAL HISTORY: Severe MOON. TECHNIQUE: CT angiography of the head was performed following the intravenous administration of 119 ml optiray 320 of iodinated contrast material. Contiguous axial images were obtained from the base of the skull to the vertex. Coronal and sagittal reformatted images were also reviewed. One of these 3D techniques was utilized: Maximum Intensity Pixel (MIP), 3D Reconstructed Images, Volume Rendered Images, Surface Shaded Rendering. One of the following dose reduction techniques was utilized for this exam. Automated exposure control, adjustment of the mA and/or kV according to patient size, and use of iterative reconstruction. COMPARISON: No previous studies are available for comparison. FINDINGS: Intracranial Arteries: The intracranial arteries, including the anterior cerebral arteries, middle cerebral arteries, posterior cerebral arteries, basilar artery, and vertebral arteries, are all patent without evidence of significant stenosis, aneurysm, or dissection. There is no evidence of vascular malformations. [place]: Right PCOM (an anatomic variant). Venous System: The visualized portions of the venous system, including the dural venous sinuses, are patent with no evidence of thrombosis. Brain Parenchyma: The brain parenchyma shows no evidence of acute infarct, hemorrhage, or mass effect. The ventricles and sulci are normal in size and configuration. Bones: The bony structures of the skull are intact without evidence of fracture or destructive lesions. Soft Tissues: The visualized soft tissues of the head are unremarkable. Additional Findings: No other significant findings are noted. IMPRESSION: Normal CT angiography of the head. No evidence of significant vascular abnormalities, acute infarct, or hemorrhage. Electronically signed by Mir Nunez 03-18-2025 12:54 AM
--- NOTE | 2025-03-18 01:10 | Emergency Department Note ---
History of Present Illness General Chief complaint: Urinary Symptoms Stated complaint: POSS UTI W/ HEADACHE, LOW BP Time Seen by Provider: 03/17/25 21:25 History of Present Illness Maximum Pain Intensity: 4 This 45-year-old recently placed on Eliquis for renal infarct presents to ER complaining of urinary symptoms, headache and lower abdominal discomfort. Patient denies chest pain, dyspnea, flank pain, fever, chills. She states she does not feel as sick as she did 2 weeks ago when she was admitted. Home Medications Medication Instructions Recorded Confirmed Type lisinopril 2.5 mg tablet 2.5 mg PO HS #30 tabs 03/08/25 03/17/25 Rx apixaban 5 mg tablet (Eliquis) 5 mg PO BID 03/17/25 03/17/25 History multivitamin 1 tab PO DAILY 03/17/25 03/17/25 History Allergies Allergy/AdvReac Type Severity Reaction Status Date / Time No Known Allergies Allergy Verified 03/17/25 22:24 Past Med/Surg History Problem List (Updated 03/18/25 @ 01:43 by Gabrielle Chambers PA-C) Abdominal pain (Acute) Headache (Acute) Urinary tract infection (Acute) Fibromuscular dysplasia of left renal artery Pyelonephritis (Acute) Left flank pain Ovarian cyst Abnormal uterine bleeding (AUB) Need for rhogam due to Rh negative mother Supervision of elderly multigravida 37 weeks gestation of Gestational hypertension Unfavorable cervix in term Medical History (Updated 03/18/25 @ 01:43 by Gabrielle Chambers PA-C) Varicella Surgical History S/P wisdom tooth extraction Family History Mother Hypertension Osteoporosis Social History Smoking Status: Never smoker Second Hand Exposure: Yes (parents smoked growing up); Do You Dip or Chew Tobacco: No; Hx Alcohol Use: Yes Alcohol type: beer, wine and hard liquor Hx Substance Use: No Preferred Language: Lao Communication Ability: Effective Check Inspector Required: No Beliefs That Will Affect Care: None marital status: marital status details: Jl Cook (43) [phone] Current Living Situation: Spouse Current Living Situation Comment: lives with spouse, daughter, cats-spouse changing litter current occupational status: employed 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 Feels Safe at Home: Yes Assistive Devices: None Review of Systems A total of 10 systems reviewed and were otherwise negative Physical Exam Vital Signs Vital Signs - 24 hr 03/17/25 20:10 03/17/25 20:38 03/17/25 20:40 Temperature 36.6 C Temperature Source Temporal Artery Scan Pulse Rate 91 H 80 Pulse Rate [Right Finger] 84 Pulse Rhythm Regular Pulse Rhythm [Right Finger] Regular Pulse Strength Normal Respiratory Rate 18 16 Respiratory Effort / Characteristics Non-Labored Spontaneous Non-Labored Respiratory Depth Normal Normal Respiratory Pattern Regular Blood Pressure 169/95 H Blood Pressure [Left Arm] 132/106 H Blood Pressure Mean 119 Blood Pressure Mean [Left Arm] 114 Blood Pressure Position Sitting Pulse Oximetry 97 99 Oxygen Delivery Method Room Air Room Air Sepsis Recent Fever Within 48 Hours No Sepsis New/Unexplained Change in Mental Status N/A Sepsis Action Taken by Nursing No Action Required 03/17/25 22:05 03/18/25 00:30 03/18/25 00:40 Temperature Temperature Source Pulse Rate 75 Pulse Rate [Right Finger] 76 81 Pulse Rhythm Pulse Rhythm [Right Finger] Regular Regular Pulse Strength Respiratory Rate 16 16 Respiratory Effort / Characteristics Non-Labored Respiratory Depth Normal Normal Respiratory Pattern Blood Pressure Blood Pressure [Left Arm] 132/85 140/102 H Blood Pressure Mean Blood Pressure Mean [Left Arm] 100 114 Blood Pressure Position Pulse Oximetry 95 97 Oxygen Delivery Method Room Air Room Air Sepsis Recent Fever Within 48 Hours Sepsis New/Unexplained Change in Mental Status Sepsis Action Taken by Nursing 03/18/25 01:00 Temperature Temperature Source Pulse Rate Pulse Rate [Right Finger] 78 Pulse Rhythm Pulse Rhythm [Right Finger] Regular Pulse Strength Respiratory Rate 16 Respiratory Effort / Characteristics Respiratory Depth Normal Respiratory Pattern Blood Pressure Blood Pressure [Left Arm] 151/93 H Blood Pressure Mean Blood Pressure Mean [Left Arm] 112 Blood Pressure Position Pulse Oximetry 97 Oxygen Delivery Method Room Air Sepsis Recent Fever Within 48 Hours Sepsis New/Unexplained Change in Mental Status Sepsis Action Taken by Nursing VITALS: Vitals are noted on the nurse's note and reviewed by myself. Vital signs stable. GENERAL: Pleasant female, in no acute distress, nondiaphoretic, well-developed well-nourished. SKIN: Capillary reflex less than 2 seconds. HEENT: Normocephalic. PERRLA. EOMI. Nares patent. Mucous membranes moist. Neck is supple without nuchal rigidity. HEART: Regular rate and rhythm LUNGS: Clear to auscultation bilaterally without wheezes, rales or rhonchi. No retractions or accessory muscle use. ABDOMEN: Positive bowel sounds x 4. Normal tympanic percussion. Soft, tender to palpation lower abdomen, without masses or organomegaly. Turner sign negative. No guarding or rebound tenderness. no CVA tenderness MUSCULOSKELETAL: No gross musculoskeletal defects. NEURO: Patient was alert and oriented to person place and time. No focal neurological deficits. Course Administered Medications Discontinued Medications Diphenhydramine HCl (Diphenhydramine 50 Mg/Ml Vial) 25 mg IV NOW STA Stop: 03/17/25 21:38 Last Admin: 03/17/25 21:54 Dose: 25 mg Documented By: maria e Sodium Chloride (Nss) 1,000 mls @ 999 mls/hr IV .Q1H1M ONE Stop: 03/17/25 22:36 Last Infusion: 03/17/25 23:54 Dose: Infused Documented By: maria e Admin: 03/17/25 21:55 Dose: 999 mls/hr Documented By: maria e Ceftriaxone Sodium (Rocephin) 2,000 mg in 50 mls @ 100 mls/hr IV NOW STA Stop: 03/17/25 22:06 Last Infusion: 03/17/25 22:58 Dose: Infused Documented By: maria e Admin: 03/17/25 21:54 Dose: 100 mls/hr Documented By: maria e Ioversol (Optiray 320 125ml) 118 ml IV ONCE ONE Stop: 03/18/25 00:04 Last Admin: 03/18/25 00:03 Dose: 118 ml Documented By: AGUS Metoclopramide HCl (Metoclopramide Hcl Inj 5 Mg/Ml 2 Ml Vial) 10 mg IV NOW STA Stop: 03/17/25 21:38 Last Admin: 03/17/25 21:54 Dose: 10 mg Documented By: maria e Medical Decision Making Medical Records Attestation: I reviewed the patient's medical records. Home Medications Current Medication List: was personally reviewed by me Laboratory Data Attestation: I reviewed the patient's lab results. 03/17/25 21:00 03/17/25 22:56 Lab Results 03/17/25 03/17/25 03/17/25 Range/Units 20:18 20:58 21:00 WBC 10.55 (4.8-10.8) K/ul RBC 4.35 (4.20-5.40) M/uL Hgb 13.6 (12.0-16.0) g/dL Hct 39.7 (37.0-47.0) % MCV 91.3 (80.0-100.0) fL MCH 31.3 (25.0-34.0) pg MCHC 34.3 (32.0-36.0) g/dL RDW Std Deviation 40.2 (36.4-46.3) fL RDW Coeff of [place] 11.9 (11.5-14.5) % Plt Count 645 H (130-400) K/uL MPV 8.6 L (9.4-12.4) fL Immature Gran % (Auto) 0.7 % Neut % (Auto) 66.1 % Lymph % (Auto) 20.2 % [place] % (Auto) 8.2 % Eos % (Auto) 3.4 % Baso % (Auto) 1.4 % Neut # (Auto) 6.98 H (1.40-6.50) K/uL Lymph # (Auto) 2.13 (1.20-3.40) K/uL [place] # (Auto) 0.86 H (0.11-0.59) K/uL Eos # (Auto) 0.36 (0.00-0.50) K/uL Baso # (Auto) 0.15 (0.00-0.20) K/uL Immature Gran # (Auto) 0.07 (0.01-0.20) K/uL Sodium Cancelled Potassium Cancelled Chloride Cancelled Carbon Dioxide Cancelled Anion Gap Cancelled BUN Cancelled Creatinine Cancelled Est Cr Clr Drug Dosing Cancelled eGFR Cancelled BUN/Creatinine Ratio Cancelled Glucose Cancelled Calcium Cancelled Magnesium Cancelled Total Bilirubin Cancelled AST Cancelled ALT Cancelled Alkaline Phosphatase Cancelled Total Protein Cancelled Albumin Cancelled Globulin Cancelled Albumin/Globulin Ratio Cancelled Urine Color Yellow Urine Appearance Clear (Clear) Urine pH 6.0 (4.5-7.5) Ur Specific [place] 1.018 (1.000-1.030) Urine Protein Trace H (Negative) Urine Glucose (UA) Negative (Negative) Urine Ketones Negative (Negative) Urine Blood 2+ H (Negative) Urine Nitrite Negative (Negative) Urine Bilirubin Negative (Negative) Urine Urobilinogen Negative (Negative) Ur Leukocyte Esterase 3+ H (Negative) Urine WBC (Auto) 11-20 H (0-5) /hpf Urine RBC (Auto) 3-5 H (0-2) /hpf U Hyaline Cast (Auto) 0-2 (0-2) /lpf U Epithel Cells (Auto) 0-2 (0-2) /hpf Urine Bacteria (Auto) 1+ H (None Seen) Urine Comment SARS-CoV-2 (PCR) NEGATIVE (Negative) Influenza Type A (PCR) Negative (Neg) Influenza Type B (PCR) Negative (Neg) RSV (RT-PCR) Negative (Neg) 03/17/25 03/17/25 Range/Units 22:10 22:56 WBC (4.8-10.8) K/ul RBC (4.20-5.40) M/uL Hgb (12.0-16.0) g/dL Hct (37.0-47.0) % MCV (80.0-100.0) fL MCH (25.0-34.0) pg MCHC (32.0-36.0) g/dL RDW Std Deviation (36.4-46.3) fL RDW Coeff of [place] (11.5-14.5) % Plt Count (130-400) K/uL MPV (9.4-12.4) fL Immature Gran % (Auto) % Neut % (Auto) % Lymph % (Auto) % [place] % (Auto) % Eos % (Auto) % Baso % (Auto) % Neut # (Auto) (1.40-6.50) K/uL Lymph # (Auto) (1.20-3.40) K/uL [place] # (Auto) (0.11-0.59) K/uL Eos # (Auto) (0.00-0.50) K/uL Baso # (Auto) (0.00-0.20) K/uL Immature Gran # (Auto) (0.01-0.20) K/uL Sodium Cancelled 136 Potassium Cancelled 3.8 Chloride Cancelled 100 Carbon Dioxide Cancelled 29 Anion Gap Cancelled 7 BUN Cancelled 17 Creatinine Cancelled 0.78 Est Cr Clr Drug Dosing Cancelled 92.5 eGFR Cancelled 94.80 BUN/Creatinine Ratio Cancelled 21.8 H Glucose Cancelled 93 Calcium Cancelled 9.3 Magnesium Cancelled 2.1 Total Bilirubin Cancelled 0.3 AST Cancelled 21 ALT Cancelled 27 Alkaline Phosphatase Cancelled 81 Total Protein Cancelled 7.4 Albumin Cancelled 3.9 Globulin Cancelled 3.5 Albumin/Globulin Ratio Cancelled 1.1 Urine Color Urine Appearance (Clear) Urine pH (4.5-7.5) Ur Specific [place] (1.000-1.030) Urine Protein (Negative) Urine Glucose (UA) (Negative) Urine Ketones (Negative) Urine Blood (Negative) Urine Nitrite (Negative) Urine Bilirubin (Negative) Urine Urobilinogen (Negative) Ur Leukocyte Esterase (Negative) Urine WBC (Auto) (0-5) /hpf Urine RBC (Auto) (0-2) /hpf U Hyaline Cast (Auto) (0-2) /lpf U Epithel Cells (Auto) (0-2) /hpf Urine Bacteria (Auto) (None Seen) Urine Comment SARS-CoV-2 (PCR) (Negative) Influenza Type A (PCR) (Neg) Influenza Type B (PCR) (Neg) RSV (RT-PCR) (Neg) Imaging Data Attestation: I personally reviewed and interpreted this imaging study as follows: Radiologist's Impression: Abdomen/Pelvis CT 03/17/25 21:36 EXAM: CT abd pelvis IV con only CLINICAL HISTORY: flank pain, UTI, renal infarct, denies fevers ,chill n/v. had angioplasty on left kidney on 03/07. TECHNIQUE: CT of the abdomen and pelvis was performed with 119 ml Optiray 320 contrast, with the following protocol: axial images with, and reconstructed coronal and sagittal images. One of the following dose reduction techniques was utilized for this exam: Automated exposure control, adjustment of the mA and/or kV according to patient size, and use of iterative reconstruction. COMPARISON: Comparison is made with 03/06/2025 CT. FINDINGS: Abdomen: Liver: Enlarged in size with homogenous density. Small hypodense cyst about 7 mm seen at segment 8 (stable). No other focal lesions were identified. Hepatic vasculature and biliary ducts are unremarkable. Gallbladder and Biliary System: The gallbladder is distended with basal hyperdensity, suggesting biliary sludge, also seen on prior. No wall thickening, pericholecystic fluid, or gallstones were identified. The common bile duct is normal in caliber without dilation. Pancreas: The pancreatic head, body, and tail are visualized and appear normal in size and density. No pancreatic masses or calcifications were noted. The pancreatic duct is not dilated. Spleen: Normal in size, shape, and density. No splenic lesions or masses were identified. Kidneys and Adrenal Glands: Both kidneys are normal in size, shape, and position. Redemonstration of the left parenchymal hypodense areas, now appearing more heterogeneous, and now overlying cortical enhancement. Minimal adjacent perinephric fat-stranding is noted. Minimal left renal pelvicalyceal fullness with enhanced mucosal lining Normally enhanced proximal left renal artery. Normally enhanced right kidney. No renal calculi. Adrenal glands are unremarkable with no evidence of masses or hyperplasia. Pelvis: Urinary Bladder: Normal in contour and wall thickness. No intraluminal lesions identified. Uterus: Normal in size and contour. No masses or abnormal thickening. Ovaries: Not well visualized but no gross abnormalities noted. Peritoneal and Retroperitoneal Structures: No free fluid or abnormal fluid collections were identified within the abdomen or pelvis. No lymphadenopathy was noted. Bowel: Marked gaseous distention of the sigmoid and rectum. The visualized bowel loops are normal in caliber and appearance. No evidence of bowel obstruction or wall thickening. Appendix is normal. Bones and Soft Tissues: Pelvic bones and soft tissues are unremarkable. No fractures or abnormal masses were identified. IMPRESSION: 1. Redemonstration of the left renal parenchymal hypodense areas, now appearing more heterogeneous, and with now overlying cortical enhancement. Findings suggest renal infarction. 2. Minimal left renal pelvicalyceal fullness with enhanced mucosal lining, could be inflammatory in nature, new findings. 3. Hepatomegaly with a stable small simple hepatic cyst at segment VIII. 4. Rest of the findings as detailed above. Electronically signed by Mir Nunez 03-18-2025 01:31 AM Head CTA 03/17/25 21:37 EXAM: CT angio head wo/w CLINICAL HISTORY: Severe MOON. TECHNIQUE: CT angiography of the head was performed following the intravenous administration of 119 ml optiray 320 of iodinated contrast material. Contiguous axial images were obtained from the base of the skull to the vertex. Coronal and sagittal reformatted images were also reviewed. One of these 3D techniques was utilized: Maximum Intensity Pixel (MIP), 3D Reconstructed Images, Volume Rendered Images, Surface Shaded Rendering. One of the following dose reduction techniques was utilized for this exam. Automated exposure control, adjustment of the mA and/or kV according to patient size, and use of iterative reconstruction. COMPARISON: No previous studies are available for comparison. FINDINGS: Intracranial Arteries: The intracranial arteries, including the anterior cerebral arteries, middle cerebral arteries, posterior cerebral arteries, basilar artery, and vertebral arteries, are all patent without evidence of significant stenosis, aneurysm, or dissection. There is no evidence of vascular malformations. [place] of [place]: Right PCOM (an anatomic variant). Venous System: The visualized portions of the venous system, including the dural venous sinuses, are patent with no evidence of thrombosis. Brain Parenchyma: The brain parenchyma shows no evidence of acute infarct, hemorrhage, or mass effect. The ventricles and sulci are normal in size and configuration. Bones: The bony structures of the skull are intact without evidence of fracture or destructive lesions. Soft Tissues: The visualized soft tissues of the head are unremarkable. Additional Findings: No other significant findings are noted. IMPRESSION: Normal CT angiography of the head. No evidence of significant vascular abnormalities, acute infarct, or hemorrhage. Electronically signed by Mir Nunez 03-18-2025 12:[address] [facility] Narrative Prior records/ancillary studies reviewed. Triage Nursing notes reviewed. Additional history obtained from nursing. The patient's history was concerning for abdominal pain and headache who was recently started on Eliquis. Differential diagnosis: Etiologies such as neurological, complication recent procedure, appendicitis, diverticulitis, PUD, biliary pathology, UTI, pancreatitis, obstruction, mesenteric ischemia, aortic pathology, infections, inflammatory bowel disease, renal colic, as well as others were entertained. Physical examination findings: As above. ER treatment provided: An order was placed for continuous cardiac monitoring. The monitor shows a rate of 60-100 with a sinus rhythm per my Independent interpretation. IV fluids, Reglan, Benadryl and Rocephin was ordered for UTI On reassessment the patient felt better. Diagnostics interpreted by me: The labs Independently Interpreted by myself revealed no worrisome leukocytosis, urine concerning for infection sent for culture. No recent culture for review Negative COVID Imaging studies: Imaging was reviewed and read by radiology Consultation: A consultation was placed with the hospitalist. The case was discussed and diagnostics were reviewed. The patient was evaluated in the ER for further treatment. Exam and history seem consistent with UTI with developing pyelonephritis. Patient was started on antibiotics. Urine cultures pending. No prior culture for review. Head CT was negative. Medicine was consulted and the case is discussed. She will be evaluated for admission. By the evaluation outlined above emergent etiologies such as appendicitis, diverticulitis, PUD, biliary pathology, pancreatitis, obstruction, mesenteric ischemia, aortic pathology, inflammatory bowel disease, renal colic, as well as others were deemed relatively unlikely. The pt informed about the findings as listed above. All questions were answered and pleased with the treatment. The chart was completed utilizing [employer] Speech voice recognition software. Grammatical errors, random word insertions, pronoun errors, and incomplete sentences are an occassional consequence of this system due to software limitations, ambient noise, and hardware issues. Any formal questions or concerns about the content, text, or information contained within the body of this dictation should be directly addressed to the physician civil engineering assistant for clarification. Impression & Plan Urinary tract infection, Headache, Abdominal pain Discharge Plan Visit Data Chief Complaint: Urinary Symptoms Stated Complaint: POSS UTI W/ HEADACHE, LOW BP ED Provider: Cahntel Montes ED Midlevel Provider: Gabrielle Chambers Discharge Problem: Urinary tract infection, Headache, Abdominal pain Patient Disposition: Admitted As Inpatient Condition: Good Forms Stand Alone Forms: DisplayLink Prescriptions Prescriptions: No Action lisinopril 2.5 mg Tablet 2.5 mg PO HS Qty: 30 0RF multivitamin Tablet 1 tab PO DAILY Eliquis 5 mg tablet 5 mg PO BID Referrals Referrals: Marisa Mcfadden PA-C [Primary Care Provider] - Discharge Problem: Urinary tract infection Qualifiers: Urinary tract infection type: acute cystitis Hematuria presence: with hematuria Qualified Code(s): N30.01 - Acute cystitis with hematuria
--- NOTE | 2025-03-18 01:31 | CT Scan Report ---
EXAM: CT abd pelvis IV con only CLINICAL HISTORY: flank pain, UTI, renal infarct, denies fevers ,chill n/v. had angioplasty on left kidney on 03/07. TECHNIQUE: CT of the abdomen and pelvis was performed with 119 ml Optiray 320 contrast, with the following protocol: axial images with, and reconstructed coronal and sagittal images. One of the following dose reduction techniques was utilized for this exam: Automated exposure control, adjustment of the mA and/or kV according to patient size, and use of iterative reconstruction. COMPARISON: Comparison is made with 03/06/2025 CT. FINDINGS: Abdomen: Liver: Enlarged in size with homogenous density. Small hypodense cyst about 7 mm seen at segment 8 (stable). No other focal lesions were identified. Hepatic vasculature and biliary ducts are unremarkable. Gallbladder and Biliary System: The gallbladder is distended with basal hyperdensity, suggesting biliary sludge, also seen on prior. No wall thickening, pericholecystic fluid, or gallstones were identified. The common bile duct is normal in caliber without dilation. Pancreas: The pancreatic head, body, and tail are visualized and appear normal in size and density. No pancreatic masses or calcifications were noted. The pancreatic duct is not dilated. Spleen: Normal in size, shape, and density. No splenic lesions or masses were identified. Kidneys and Adrenal Glands: Both kidneys are normal in size, shape, and position. Redemonstration of the left parenchymal hypodense areas, now appearing more heterogeneous, and now overlying cortical enhancement. Minimal adjacent perinephric fat-stranding is noted. Minimal left renal pelvicalyceal fullness with enhanced mucosal lining Normally enhanced proximal left renal artery. Normally enhanced right kidney. No renal calculi. Adrenal glands are unremarkable with no evidence of masses or hyperplasia. Pelvis: Urinary Bladder: Normal in contour and wall thickness. No intraluminal lesions identified. Uterus: Normal in size and contour. No masses or abnormal thickening. Ovaries: Not well visualized but no gross abnormalities noted. Peritoneal and Retroperitoneal Structures: No free fluid or abnormal fluid collections were identified within the abdomen or pelvis. No lymphadenopathy was noted. Bowel: Marked gaseous distention of the sigmoid and rectum. The visualized bowel loops are normal in caliber and appearance. No evidence of bowel obstruction or wall thickening. Appendix is normal. Bones and Soft Tissues: Pelvic bones and soft tissues are unremarkable. No fractures or abnormal masses were identified. IMPRESSION: 1. Redemonstration of the left renal parenchymal hypodense areas, now appearing more heterogeneous, and with now overlying cortical enhancement. Findings suggest renal infarction. 2. Minimal left renal pelvicalyceal fullness with enhanced mucosal lining, could be inflammatory in nature, new findings. 3. Hepatomegaly with a stable small simple hepatic cyst at segment VIII. 4. Rest of the findings as detailed above. Electronically signed by Mir Nunez 03-18-2025 01:31 AM
--- NOTE | 2025-03-18 01:47 | History & Physical Report ---
Date of Service March 18, 2025 Assessment & Plan (1) Abdominal pain: (2) Headache: (3) Urinary tract infection: (4) Fibromuscular dysplasia of left renal artery: Plan Assessment/plan Acute complicated UTI History of renal artery stenosis status post percutaneous transluminal angioplasty of left renal artery in March 07, 2025 Recently admitted for left renal infarction; underwent angioplasty by vascular surgery Presents with headache, dysuria. no fever/chills Urinalysis suggestive of infection No Leukocytosis CT abdomen/pelvis on admission shows re-demonstration of left renal parenchymal hypodense areas, now appearing more heterogeneous now with overlying cortical enhancement. Minimal left renal pelvicalyceal fullness with enhanced mucosal lining, could be inflammatory in nature. CTA head- Normal CT angiography of the head. No evidence of significant vascular abnormalities, acute infarct, or hemorrhage. Started on ceftriaxone; continue. Follow-up on urine culture results.Obtain blood cx Will obtain renal artery Doppler Will consult vascular surgery for any additional recommendation given recent surgery Continue on Eliquis IV fluids with NS at 80 cc/h Hypertension-continue on lisinopril Full code DVT prophylaxis Eliquis Time spent evaluating patient, direct bedside care, chart review, placing orders, interpretation of diagnostic studies, discussion with consultants, patient, and family members, as well as other required patient management activities is 60 minutes Please note the above document was generated using voice recognition software. It may contain grammatical, syntax or spelling errors. Any formal questions or concerns about the content, text or information contained within the body of this dictation should be directly addressed to the provider for clarification History of Present Illness Primary Care Provider: Marisa Mcfadden PA-C History obtained from chart review, interview with the patient and discussion with the ED provider. Patient was recently admitted from March 03, 2025 to March 09, 2025 with left renal infarct. She underwent bilateral renal artery angiogram with percutaneous transluminal angioplasty of left renal artery. Patient had followed up with her primary care doctor on March 12, 2025 reports doing well at that time. Patient presents to the ED today with reports of headache for the last 2 days; worsens lying down. The headache is on the backside of her head; not associated with changes in vision, weakness/numbness of any body part. She reports some history of dysuria; denies any flank pain, suprapubic pain, fever, chills or weakness. On presentation to the ED, she was afebrile, normotensive and saturating well on room a urinalysis suggestive of possible infection. CT abdomen/pelvis shows redemonstration of left renal parenchymal hypodense areas, now appearing more he terogeneous now with overlying cortical enhancement. Minimal left renal pelvicalyceal fullness with enhanced mucosal lining, could be inflammatory in nature. Patient was given a dose of ceftriaxone and referred for admission. Allergies Allergy/AdvReac Type Severity Reaction Status Date / Time No Known Allergies Allergy Verified 03/17/25 22:24 Home Medications Medication Instructions Recorded Confirmed Type lisinopril 2.5 mg tablet 2.5 mg PO HS #30 tabs 03/08/25 03/17/25 Rx apixaban 5 mg tablet (Eliquis) 5 mg PO BID 03/17/25 03/17/25 History multivitamin 1 tab PO DAILY 03/17/25 03/17/25 History Past Med/Surg History Problem List (Updated 03/18/25 @ 01:43 by Gabrielle Chambers PA-C) Abdominal pain (Acute) Headache (Acute) Urinary tract infection (Acute) Fibromuscular dysplasia of left renal artery Pyelonephritis (Acute) Left flank pain Ovarian cyst Abnormal uterine bleeding (AUB) Need for rhogam due to Rh negative mother Supervision of elderly multigravida 37 weeks gestation of Gestational hypertension Unfavorable cervix in term Medical History (Updated 03/18/25 @ 01:43 by Gabrielle Chambers PA-C) Varicella Surgical History S/P wisdom tooth extraction Family History Mother Hypertension Osteoporosis Social History Smoking Status: Never smoker Second Hand Exposure: Yes (parents smoked growing up); Do You Dip or Chew Tobacco: No; Hx Alcohol Use: Yes Alcohol type: beer, wine and hard liquor Hx Substance Use: No Preferred Language: Brazilian Communication Ability: Effective Car Retarder Operator Required: No Beliefs That Will Affect Care: None marital status: marital status details: Jl Cook (43) [phone] Current Living Situation: Spouse Current Living Situation Comment: lives with spouse, daughter, cats-spouse changing litter current occupational status: employed 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 Normal insp/exp effort, no accessory muscle use Cardiovascular: RRR, no murmur, no edema Vessels: no JVD or carotid bruit Chest: normal inspection of chest Abdomen: soft, non-tender, CVA -non-tender Musculoskeletal: no cyanosis or clubbing, extremities motor strength 5/5 Skin: no rashes, warm and dry normal turgor Neurologic: PERRL, EOMI, accommodation nl, no face palsy, no dysarthria CN's II- XI intact bilaterally and moves all extremities Psychiatric: A+Ox3, euthymic affect Results & Data Results & Data Vital Signs (Past 12 Hours) Vital Signs Temp Pulse Pulse Resp BP BP Pulse Ox 03/18/25 01:00 78 16 151/93 H 97 03/18/25 00:40 75 03/18/25 00:30 81 16 140/102 H 97 03/17/25 22:05 76 16 132/85 95 03/17/25 20:40 84 16 132/106 H 99 03/17/25 20:38 80 03/17/25 20:10 36.6 C 91 H 18 169/95 H 97 O2 Del Method 03/18/25 01:00 Room Air 03/18/25 00:40 03/18/25 00:30 Room Air 03/17/25 22:05 Room Air 03/17/25 20:40 Room Air 03/17/25 20:38 03/17/25 20:10 Room Air (3) Urinary tract infection Hematuria presence: with hematuria Urinary tract infection type: acute cystitis Qualified Code(s): N30.01 - Acute cystitis with hematuria
[2025-03-18] MEDS ORDERED: POLYETHYLENE (MIRALAX) 17 GM PACK PO PRN (02:06)
[2025-03-18] MEDS: ACETAMINOPHEN 1,000 MG/100 ML VIAL IV STA (02:47)
[2025-03-18 03:35] LABS: Anion Gap 6.0 (3-11); Blood Urea Nitrogen 15.0 mg/dl (6-23); Calcium 9.3 mg/dl (8.6-10.3); Carbon Dioxide 28.0 mmol/L (21-32); Chloride 102.0 mmol/L (98-107); Creatinine Clr Calc Pharmacy 98.8 ml/min; Glucose 99.0 mg/dl (70-99(Fasting)); Potassium 3.8 mmol/L (3.5-5.1); Sodium 136.0 mmol/L (136-145)
[2025-03-18] MEDS: SODIUM CHLORIDE 0.9% 1,000 ML IV SCH (03:42)
--- NOTE | 2025-03-18 07:37 | Ultrasound Report ---
EXAM: US duplex renal art/vein BI CLINICAL HISTORY: Renal artery stenosis s/p surgery TECHNIQUE: Bilateral renal arterial duplex was performed. COMPARISON: None. FINDINGS: Kidneys: The right kidney measures 10.2cm, normal in size. Left kidney measures 10.9 cm, normal in size. No evidence of stones, cysts, or hydronephrosis bilaterally. The bilateral cortex and pelvis are normal in size. No other significant pathology was seen. Perinephric fat, fluid, and adrenal glands appear unremarkable. Difficult to detect vascularity in the left upper pole due to suspected infarction Aorta: Mid aorta diameter is within normal limits. Mid aorta peak systolic velocity (PSV) is 91cm/sec, within normal limits. No atherosclerotic changes throughout the visualized abdominal aorta. Renal Arteries: Parameter Right Renal Artery (RRA) Left Renal Artery (LRA) Proximal PSV/EDV (cm/sec) 124/45 69/24 Mid PSV/EDV (cm/sec) 67.9/25 256/77 Distal PSV/EDV (cm/sec) 70.9/24 118.9/37 Resistive Index (RI) RI: Upper pole: 0.57 Mid pole: 0.63 Lower pole: 0.65 RI: Upper pole: 0.58 Mid pole: 0.63 Lower pole: 0.53 Renal Artery/Aorta Ratio (RAR) 1.4 2.8 Reference data: 60% stenosis, RAR 3.1: 1, renal artery PSV 180 cm/s The renal artery/aorta ratio is within normal limits bilaterally. There is no detectable renal artery stenosis on the right side. Both renal veins are patent IMPRESSION: 1. Difficult to detect vascularity in the left upper pole due to suspected infarction 2. Increased blood velocity in the left artery mid-segment could be due to stenosis or nonspecific. 3. Other than that, no gross abnormality in the renal duplex was noted 4. Normal kidney size. Electronically signed by Mir Nunez 03-18-2025 07:36 AM
[2025-03-18] MEDS: APIXABAN 5 MG TABLET PO SCH (08:25)
[2025-03-18] MEDS: MULTIVITAMIN TAB PO SCH (08:25)
[2025-03-18] MEDS: ACETAMINOPHEN 325 MG TAB PO PRN (10:04)
--- NOTE | 2025-03-18 15:30 | Vascular Surgery Consultation ---
Date of Consultation March 18, 2025 Assessment & Plan (1) Fibromuscular dysplasia of left renal artery: I reviewed the CTA as well as the renal duplex from yesterday. The left renal artery appears patent. The infarct in the left kidney is evolving as expected. She is not having any left flank pain as she did acutely a few weeks ago. This does not appear to be related to renal artery stenosis or her procedure. Will continue to follow along while in house. History of Present Illness Attending Physician: Sulma El MD History of Present Illness Patient known to me having undergone left renal angioplasty on 03/07/25 for likely renal fibromuscular dysplasia with renal infarct. Readmitted with UTI and headache. She checks her home BP and it has been 120-140 systolic. Allergies Allergy/AdvReac Type Severity Reaction Status Date / Time No Known Allergies Allergy Verified 03/17/25 22:24 Home Medications Medication Instructions Recorded Confirmed Type lisinopril 2.5 mg tablet 2.5 mg PO HS #30 tabs 03/08/25 03/17/25 Rx apixaban 5 mg tablet (Eliquis) 5 mg PO BID 03/17/25 03/17/25 History multivitamin 1 tab PO DAILY 03/17/25 03/17/25 History Patient History Medical History (Updated 03/18/25 @ 02:33 by Tata Doran) Varicella Surgical History S/P wisdom tooth extraction Family History Mother Hypertension Osteoporosis Social History Smoking Status: Never smoker Second Hand Exposure: Yes (parents smoked growing up); Do You Dip or Chew Tobacco: No; Hx Alcohol Use: No Hx Substance Use: No Preferred Language: Cape Verdean Communication Ability: Effective Music Researcher Required: No Beliefs That Will Affect Care: None marital status: marital status details: Jl Cook (43) [phone] Current Living Situation: Spouse and Family Current Living Situation Comment: lives with spouse, daughter, cats-spouse changing litter current occupational status: employed current occupation: [employer] Other Information That Helps Us Care for You: No Feels Safe at Home: Yes Safety Concerns: Feels Safe At This Time Assistive Devices: Glasses Physical Exam Physical Exam: Awake, alert. "I just don't feel good." BP 149/83. P81. Right groin puncture site without hematoma. No current headache or neurologic findings. Results & Data Vital Signs (Past 12 Hours) Vital Signs Temp Pulse Pulse Resp BP Pulse Ox O2 Del Method 03/18/25 10:14 81 19 149/83 H 95 Room Air 03/18/25 07:16 83 03/18/25 03:43 36.8 C 80 16 149/92 H 95 Room Air PG Care Time/CCT Total # of Minutes Spent Total Time Spent with Patient: Total time spent is greater than 50% in coordination of care (as documented) at patient's floor/unit and/or counseling patient: Coding Level of Care Code 29916 OP VST EST LOW 20 MIN Diagnoses Fibromuscular dysplasia of left renal artery I77.3
[2025-03-18] MEDS: CYCLOBENZAPRINE HCL 10 MG TAB PO STA (16:08)
[2025-03-18] MEDS: METOCLOPRAMIDE HCL INJ 5 MG/ML 2 ML VIAL IV STA (16:08)
[2025-03-18] MEDS: diphenhydrAMINE 50 MG/ML VIAL IV STA (16:09)
[2025-03-18] MEDS: MAGNESIUM SULFATE / D5W 1 GM/100 ML BAG IV ONE (16:11)
--- NOTE | 2025-03-18 17:23 | Communication Note ---
Date of Service: March 18, 2025 evaluated in ed reports that she doesnt have flank pain states she has very uncomfortable, full head headache--noting tenderness to scalp and occiput--reporting it is bandlike states that the dysuria is new, in the last couple of days...that the procedural discomfort resolved she felt and she completed her recent course of abx on Wednesday last week Reviewed CTA head which was negative Reviewed Vascular note with no reported changes in management. #Tension headache migraine cocktail with cyclobenzaprine reassess in am #Abnormal UA suspicious for possible UTI given reported dysuria, however did finish course of abx recently no other itching/abnomoral discharge to suggest yeast infection continue ctx for now, follow culture possible d/c tomorrow if headache improved and plan for abx determined
[2025-03-18] MEDS: cefTRIAXone SODIUM 2,000 MG/50 ML BAG IV SCH (22:09)
[2025-03-19 06:04] LABS: Hematocrit (blood only) 38.0 % (37.0-47.0); Hemoglobin 13.1 g/dL (12.0-16.0); Immature Granulocytes # (auto) 0.04 K/uL (0.01-0.20); Immature Granulocytes % (auto) 0.4 %; Mean Corpuscular Hemoglobin 30.8 pg (25.0-34.0); Mean Corpuscular Volume 89.4 fL (80.0-100.0); Platelet Count 595 K/uL (130-400); RDW Standard Deviation 38.9 fL (36.4-46.3); Red Blood Count 4.25 M/uL (4.20-5.40); White Blood Count 8.98 K/ul (4.8-10.8)
[2025-03-19 06:28] LABS: Anion Gap 8.0 (3-11); Blood Urea Nitrogen 12.0 mg/dl (6-23); Calcium 9.2 mg/dl (8.6-10.3); Carbon Dioxide 28.0 mmol/L (21-32); Chloride 99.0 mmol/L (98-107); Creatinine Clr Calc Pharmacy 86.9 ml/min; Glucose 85.0 mg/dl (70-99(Fasting)); Magnesium 2.1 mg/dl (1.7-2.4); Potassium 4.1 mmol/L (3.5-5.1); Sodium 135.0 mmol/L (136-145)
[2025-03-19] MEDS: LIDOCAINE 5% 1 PATCH TD SCH (11:46)
[2025-03-19] MEDS: SODIUM CHLORIDE 0.9% 1,000 ML IV SCH (11:49)
--- NOTE | 2025-03-19 12:34 | Neurology Consultation ---
Date of Consultation March 19, 2025 Telehealth Consultation Telehealth Information Telehealth Information: I performed this visit using a real-time telehealth connection between my location and the patients originating location ([facility]). After connecting through interactive tele-video, patient was identified by name and date of and/or wristband check.Patient (or authorized healthcare group sales representative) was informed that this was a telemedicine visit and it was being conducted confidentially over secure lines. My office door was closed and no one else was present in the room with me.Patient (or authorized healthcare group sales representative) provided consent to proceed with the visit, expressed an understanding of privacy and security of the telemedicine visit, and gave permission to have a hospital group sales representative in the room in order to assist with the visit and to conduct portions of the visit, as needed. I informed the patient (or authorized healthcare group sales representative) that I reviewed their record and presented the opportunity for them to ask any questions regarding the visit today. The patient agreed to participate. History of Present Illness Reason for Consultation: Persistent Headache Requesting Physician: Dr. Alfonso Freeman Attending Physician: Alfonso Freeman MD History of Present Illness Per admitting H&P: " Allergies Allergy/AdvReac Type Severity Reaction Status Date / Time No Known Allergies Allergy Verified 03/17/25 22:24 Home Medications Medication Instructions Recorded Confirmed Type lisinopril 2.5 mg tablet 2.5 mg PO HS #30 tabs 03/08/25 03/17/25 Rx apixaban 5 mg tablet (Eliquis) 5 mg PO BID 03/17/25 03/17/25 History multivitamin 1 tab PO DAILY 03/17/25 03/17/25 History Patient History Medical History (Updated 03/19/25 @ 13:38 by Candy Hill MD) Headache Varicella Surgical History S/P wisdom tooth extraction Family History Mother Hypertension Osteoporosis Social History Smoking Status: Never smoker Second Hand Exposure: Yes (parents smoked growing up); Do You Dip or Chew Tobacco: No; Hx Alcohol Use: No Hx Substance Use: No Preferred Language: Kittitian Communication Ability: Effective Sulky Driver Required: No Beliefs That Will Affect Care: None marital status: marital status details: Jl Cook (43) [phone] Current Living Situation: Spouse and Family Current Living Situation Comment: lives with spouse, daughter, cats-spouse changing litter current occupational status: 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
--- NOTE | 2025-03-19 13:38 | Neurology Consultation ---
Date of Consultation March 19, 2025 Assessment & Plan (1) Headache: Patient presenting with intractable tension type headache s/p renal angioplasty and initiation of eliquis. CT/CTA unremarkable. Low suspicion for structural cause but would recommend MRI w/wo contrast given new headache alongside treatment plan as below: Plan -- Prednisone taper. Start at 80 mg x 3 days and then decrease to 60 mg x 2 days, 50 mg x 2 days, 40 mg x 2 days, 30 mg x 2 days, 20 mg x 2 days, 10 mg x 2 days and stop. -- Tylenol for breakthrough pain or fioricet if pain is severe or resistant to tylenol -- MRI Brain w/wo contrast can be done inpatient or outpatient -- Could consider switching eliquis to xarelto if ok from primary team if the above fails -- Neurology referral x 4-6 weeks to ensure headaches have decreeased Telehealth Consultation Telehealth Information Telehealth Information: I performed this visit using a real-time telehealth connection between my loc ation and the patients originating location ([facility]). After connecting through interactive tele-video, patient was identified by name and date of and/or wristband check.Patient (or authorized healthcare front office representative) was informed that this was a telemedicine visit and it was being conducted confidentially over secure lines. My office door was closed and no one else was present in the room with me.Patient (or authorized healthcare front office representative) provided consent to proceed with the visit, expressed an understanding of privacy and security of the telemedicine visit, and gave permission to have a hospital front office representative in the room in order to assist with the visit and to conduct portions of the visit, as needed. I informed the patient (or authorized healthcare front office representative) that I reviewed their record and presented the opportunity for them to ask any questions regarding the visit today. The patient agreed to participate. History of Present Illness Reason for Consultation: headaches Requesting Physician: Dr. Freeman Attending Physician: Sulma El MD History of Present Illness Patient presents for headaches that started approximately 4-5 days s/p renal angioplasty in setting of renal infarct. She states that after the procedure she was started on eliquis and that she noted she became hot and flushed with this about 4 days later she developed a persistent, tension type headache that worsened upon laying down. Tylenol only helped somewhat. Cannot have ibuprofen. She denies any vision or other neurologic signs. She states that she only gets occasional headaches otherwise and that this is unusual for her to have such a persistent headache. She states at worst it is about 6-7 severity and currently is 3-4 it is mostly the persistence that has been difficult. Allergies Allergy/AdvReac Type Severity Reaction Status Date / Time No Known Allergies Allergy Verified 03/17/25 22:24 Home Medications Medication Instructions Recorded Confirmed Type lisinopril 2.5 mg tablet 2.5 mg PO HS #30 tabs 03/08/25 03/17/25 Rx apixaban 5 mg tablet (Eliquis) 5 mg PO BID 03/17/25 03/17/25 History multivitamin 1 tab PO DAILY 03/17/25 03/17/25 History Patient History Medical History (Updated 03/19/25 @ 13:38 by Candy Hill MD) Headache Varicella Surgical History S/P wisdom tooth extraction Family History Mother Hypertension Osteoporosis Social History Smoking Status: Never smoker Second Hand Exposure: Yes (parents smoked growing up); Do You Dip or Chew Tobacco: No; Hx Alcohol Use: No Hx Substance Use: No Preferred Language: Burkinan Communication Ability: Effective Lining Cementer Required: No Beliefs That Will Affect Care: None marital status: marital status details: Jl Cook (43) [phone] Current Living Situation: Spouse and Family Current Living Situation Comment: lives with spouse, daughter, cats-spouse changing litter current occupational status: employed current occupation: [employer] Other Information That Helps Us Care for You: No Feels Safe at Home: Yes Safety Concerns: Feels Safe At This Time Assistive Devices: Glasses Review of Systems Negative aside from above Physical Exam Patient resting in bed, looks somewhat uncomfortable and in pain. A&O to person, place, situation. Able to converse normallly. No EOM abnormality or facial droop. Able to lift all four extremities against gravity. No ataxia. Sensation reportedly intact. Results & Data Vital Signs (Past 12 Hours) Vital Signs Temp Pulse Resp BP Pulse Ox O2 Del Method 03/19/25 07:20 Room Air 03/19/25 07:03 36.8 C 77 16 138/81 96 Room Air Laboratory Results Per chart Diagnostic Findings CT/CTA: unremarkable
--- NOTE | 2025-03-19 17:27 | Hospitalist Progress Note ---
Date of Service March 19, 2025 Assessment & Plan (1) Abdominal pain: (2) Headache: (3) Urinary tract infection: (4) Fibromuscular dysplasia of left renal artery: Plan Assessment/plan Acute complicated UTI History of renal artery stenosis status post percutaneous transluminal angioplasty of left renal artery in March 07, 2025 Recently admitted for left renal infarction; underwent angioplasty by vascular surgery Presents with headache, dysuria. no fever/chills Urinalysis suggestive of infection No Leukocytosis CT abdomen/pelvis on admission shows re-demonstration of left renal parenchymal hypodense areas, now appearing more heterogeneous now with overlying cortical enhancement. Minimal left renal pelvicalyceal fullness with enhanced mucosal lining, could be inflammatory in nature. CTA head- Normal CT angiography of the head. No evidence of significant vascular abnormalities, acute infarct, or hemorrhage. Renal Doppler: 1. Difficult to detect vascularity in the left upper pole due to suspected infarction 2. Increased blood velocity in the left artery mid-segment could be due to stenosis or nonspecific. 3. Other than that, no gross abnormality in the renal duplex was noted 4. Normal kidney size. 03/19 afebrile no urinary symptoms urine and blood culture: pending continue empiric IV Ceftriaxone Tension Headache still with persistent significant headache today Neurology service consulted: recommend steroid taper beginning at 80mg daily x 3 days, Brain MRI w/wo constrast if Prednisone does not relieve headache, change Eliquis to Xarelto discussed with Vascular Surgeon Dr. Rolly olsen to transition to Xarelto if needed Hypertension-continue on lisinopril Full code DVT prophylaxis Eliquis Admission and Anticipated Discharge Date Admission Date: March 19, 2025 Subjective seen resting in bed sleeping but easily awakened states she still has significant headache- generalized starting from frontal to posterior aspect no changes in vision, focal neuro symptoms no dysuria, abdominal/flank pain, fever/chills, etc no other symptoms Review of Systems Review of Systems: all noted and negative except for above Physical Exam Physical Exam: General- oriented x 3, not in distress, speaks in sentences with no effort or accessory muscle use Eyes- anicteric Neck- no JVD Lungs- clear breath sounds bilaterally, no rales/wheezes Heart- normal rate, regular rhythm; no murmurs Abdomen- normal bowel sounds, nondistended, soft, nontender Extremities- no pretibial edema, no calf tenderness no CVA tenderness Neuro- alert, oriented x 3; no gross focal neurologic deficits Skin- warm & dry Results & Data Results & Data Vital Signs (Past 12 Hours) Vital Signs Temp Pulse Resp BP Pulse Ox O2 Del Method 03/19/25 15:09 36.8 C 81 16 120/77 96 Room Air 03/19/25 07:20 Room Air 03/19/25 07:03 36.8 C 77 16 138/81 96 Room Air all noted and reviewed including below (3) Urinary tract infection Hematuria presence: with hematuria Urinary tract infection type: acute cystitis Qualified Code(s): N30.01 - Acute cystitis with hematuria
[2025-03-19] MEDS: predniSONE 20 MG TAB PO SCH (17:47)
[2025-03-19] MEDS: GADOBUTROL 65ML VIAL IV ONE (21:58)
[2025-03-19] MEDS: REMOVE LIDODERM PATCH SCH (22:11)
--- NOTE | 2025-03-20 00:49 | Magnetic Resonance Report ---
Exam(s): MRI HEAD W/WO Contrast IV Amt: 8mL Gadavist given existing IV EXAM: MR Head Without and With Intravenous Contrast CLINICAL HISTORY: Reason for exam: persistent headache. OTHER: Other Notes: 8CC GADAVIST INJ. LEFT IV AT 2154 HRS. BY CMP PERSISTANT MOON X 1 WEEK SINCE ANGIOPLASTY OF LEFT RENAL ARTERY NO INJURY PT. IS ON BLOOD THINNERS NO HX STROKE TECHNIQUE: Magnetic resonance images of the head/brain without and with intravenous contrast in multiple planes. CONTRAST: Patient received 8mL Gadavist given existing IV of IV contrast COMPARISON: Prior head CT from March 17, 2025. FINDINGS: Brain: Minimal nonspecific white matter changes. No mass. No hemorrhage. No acute infarct. The flow voids at the base the brain are intact. Tiny pineal cyst. Normal enhancement of the brain parenchyma. The dural venous sinuses are patent. Ventricles: Unremarkable. No ventriculomegaly. Bones/joints: Unremarkable. No acute fracture. Sinuses: Unremarkable as visualized. No acute sinusitis. Mastoid air cells: Unremarkable as visualized. No mastoid effusion. Orbits: Unremarkable as visualized. IMPRESSION: No evidence of acute intracranial pathology. Electronically signed by: Cynthia Caballero MD 03/20/25 00:49 AM
[2025-03-20 07:28] VITALS: BP 135/82; PULSE 80; RESP 17; TEMP 98.2; O2SAT 96
[2025-03-20 08:01] LABS: Hematocrit (blood only) 36.4 % (37.0-47.0); Hemoglobin 13.0 g/dL (12.0-16.0); Immature Granulocytes # (auto) 0.04 K/uL (0.01-0.20); Immature Granulocytes % (auto) 0.3 %; Mean Corpuscular Hemoglobin 31.5 pg (25.0-34.0); Mean Corpuscular Volume 88.1 fL (80.0-100.0); Platelet Count 632 K/uL (130-400); RDW Standard Deviation 37.6 fL (36.4-46.3); Red Blood Count 4.13 M/uL (4.20-5.40); White Blood Count 12.13 K/ul (4.8-10.8)
[2025-03-20 08:22] LABS: Anion Gap 9.0 (3-11); Blood Urea Nitrogen 14.0 mg/dl (6-23); Calcium 9.3 mg/dl (8.6-10.3); Carbon Dioxide 25.0 mmol/L (21-32); Chloride 101.0 mmol/L (98-107); Creatinine Clr Calc Pharmacy 109.3 ml/min; Glucose 118.0 mg/dl (70-99(Fasting)); Potassium 4.2 mmol/L (3.5-5.1); Sodium 135.0 mmol/L (136-145)
[2025-03-20] MEDS: RIVAROXABAN 20 MG TAB PO SCH (08:59)
--- NOTE | 2025-03-20 11:43 | Discharge Summary ---
Discharge Summary Date of Service March 20, 2025 Principal Dx & Hospital Course #1 = Principal Diagnosis (1) Abdominal pain: (2) Headache: (3) Urinary tract infection: (4) Fibromuscular dysplasia of left renal artery: Plan Ms. Cook is a 45 year old woman with history of fibromuscular dysplasia s/p left renal artery stenting admitted for intractable headache. Patient continued with headache despite migraine cocktail and other therapies. Neurology consulted an dMRI obtained, which was wnl. Patient started on a prednisone burst and transitioned to xarelto as it was felt eliquis may be contributing to symptoms. On day of discharge patient was doing much better and reports significant improvement in headache and ready to go home. patient also being treated for step uti given recent stent and symptoms patient discharge with amoxicillin. #Acute complicated UTI #History of renal artery stenosis status post percutaneous transluminal angioplasty of left renal artery in March 07, 2025 Recently admitted for left renal infarction; underwent angioplasty by vascular surgery Presents with headache, dysuria. no fever/chills Urinalysis suggestive of infection No Leukocytosis CT abdomen/pelvis on admission shows re-demonstration of left renal parenchymal hypodense areas, now appearing more heterogeneous now with overlying cortical enhancement. Minimal left renal pelvicalyceal fullness with enhanced mucosal lining, could be inflammatory in nature. CTA head- Normal CT angiography of the head. No evidence of significant vascular abnormalities, acute infarct, or hemorrhage. Renal Doppler: 1. Difficult to detect vascularity in the left upper pole due to suspected infarction 2. Increased blood velocity in the left artery mid-segment could be due to stenosis or nonspecific. 3. Other than that, no gross abnormality in the renal duplex was noted 4. Normal kidney size. transitioned course from ctx to amoxicillin #Intractable headache still with persistent significant headache today Neurology service consulted: continue on prednisone transitoned eliquis to xarelto #Hypertension-continue on lisinopril Notes For Next Care Provider Medication Changes From Visit amoxicillin x 3 tablets eliquis to xarelto Admission HPI Per Admitting Provider History obtained from chart review, interview with the patient and discussion with the ED provider. Patient was recently admitted from March 03, 2025 to March 09, 2025 with left renal infarct. She underwent bilateral renal artery angiogram with percutaneous transluminal angioplasty of left renal artery. Patient had followed up with her primary care doctor on March 12, 2025 reports doing well at that time. Patient presents to the ED today with reports of headache for the last 2 days; worsens lying down. The headache is on the backside of her head; not associated with changes in vision, weakness/numbness of any body part. She reports some history of dysuria; denies any flank pain, suprapubic pain, fever, chills or weakness. On presentation to the ED, she was afebrile, normotensive and saturating well on room a urinalysis suggestive of possible infection. CT abdomen/pelvis shows redemonstration of left renal parenchymal hypodense areas, now appearing more heterogeneous now with overlying cortical enhancement. Minimal left renal pelvicalyceal fullness with enhanced mucosal lining, could be inflammatory in nature. Patient was given a dose of ceftriaxone and referred for admission. Admission Exam Per Admitting Provider Constitutional: WD/WN, vitals as above, NAD, sitting up in bed, pleasant, conversing easily Respiratory: normal respiratory effort, lungs clear to auscultation, no wheeze, rales, rhonchi. Normal insp/exp effort, no accessory muscle use Cardiovascular: RRR, no murmur, no edema Vessels: no JVD or carotid bruit Chest: normal inspection of chest Abdomen: soft, non-tender, CVA -non-tender Musculoskeletal: no cyanosis or clubbing, extremities motor strength 5/5 Skin: no rashes, warm and dry normal turgor Neurologic: PERRL, EOMI, accommodation nl, no face palsy, no dysarthria CN's II- XI intact bilaterally and moves all extremities Psychiatric: A+Ox3, euthymic affect Discharge Exam Constitutional WD/WN, vitals as above Respiratory normal respiratory effort, lungs clear to auscultation Cardiovascular RRR, no murmur, no edema Gastrointestinal (Abdomen) normal bowel sounds, soft, nontender, no hepatosplenomegaly Updated Medication List Medication Instructions Recorded Confirmed Type lisinopril 2.5 mg tablet 2.5 mg PO HS #30 tabs 03/08/25 03/17/25 Rx multivitamin 1 tab PO DAILY 03/17/25 03/17/25 History amoxicillin 500 mg capsule 500 mg PO BID 10 days #3 caps 03/20/25 Rx fluconazole 150 mg tablet 150 mg PO DAILY 1 dose #1 tab 03/20/25 Rx prednisone 20 mg tablet See Taper PO DAILY 14 days #29 tabs 03/20/25 Rx rivaroxaban 20 mg tablet (Xarelto) 20 mg PO DAILY 30 days #30 tabs 03/20/25 Rx Hospital Stay Data Consultations 03/18/25 01:41 ED Decision to Admit Stat 03/19/25 08:00 Consult Vascular Surgery Routine 03/19/25 11:16 Consult Neurology Routine Diagnostic Imagining Performed 03/17/25 21:36 CT Abd and Pelvis [CT abd pelvis IV con only] Stat 03/17/25 21:37 CTA head wo/w [CT angio head wo/w] Stat 03/18/25 07:00 US doppler renal [US duplex renal art/vein BI] Routine 03/19/25 17:21 MRI Brain [MR brain wo/w con] Routine Pending Results Patient Have Any Pending Studies at Discharge: No Discharge Instructions Given to Patient (Per Discharging Provider) You were admitted for intractable headache You were seen by neurology, who recommended changing eliquis to xarelto You were also started on a prednisone taper: continue at 80 mg x 2 more days and then decrease to 60 mg x 2 days, 50 mg x 2 days, 40 mg x 2 days, 30 mg x 2 days, 20 mg x 2 days, 10 mg x 2 days and stop. A Neurology appointment will be coorindated for you You were also noted to have a urine infection, therefore you will continue 3 more doses of amoxicillin 500mg two times a day, your first dose will be this evening with dinner and you should complete all tablets the evening of 03/21. Total Time Total Time Spent Total Time Spent (In Minutes): 45
== END 2025-03-20 13:05 | disposition home or self-care (01) | DRG 690 ==
LOC: ED 20:05 → EDINP 20:05 → SUATTDRO 03-18 02:06 → EDINP 03-18 02:34 → 3W 03-18 16:29 → SUATTDRO 03-19 11:39